=== PATIENT | male | born 1990 | race Two or more races ===

== ENCOUNTER 2023-06-29 17:04 | Emergency (ER) | payer BC ==
[~2023-06-29] VITALS: Ht 165.1 cm; Wt 81.7 kg
[2023-06-29 18:27] VITALS: BP 130/82; PULSE 117; RESP 16; TEMP 99.4; O2SAT 96
== END 2023-06-29 19:42 | disposition home or self-care (01) ==
LOC: ER 17:04
DX: F07.81 Postconcussional syndrome (principal); R55 Syncope and collapse; V98.8XXA Other specified transport accidents, initial encounter; Y93.89 Activity, other specified; Y92.89 Other specified places as the place of occurrence of the external cause; Y99.8 Other external cause status
CPT/HCPCS: 70450

== ENCOUNTER 2023-12-26 15:04 | Emergency (ER) | payer BC, OTHER ==
[~2023-12-26] VITALS: Ht 165.1 cm; Wt 76.7 kg
[2023-12-26 15:15] VITALS: BP 138/90; PULSE 115; RESP 16; O2SAT 96
[2023-12-26] MEDS ORDERED: CYCL-837 PO (16:02)
[2023-12-26] MEDS ORDERED: IBUP-1455 PO (16:02)
== END 2023-12-26 21:41 | disposition home or self-care (01) ==
LOC: ER 15:04
DX: S00.33XA Contusion of nose, initial encounter (principal); R51.9 Headache, unspecified; V89.2XXA Person injured in unspecified motor-vehicle accident, traffic, initial encounter; Y93.89 Activity, other specified; Y92.89 Other specified places as the place of occurrence of the external cause; Y99.8 Other external cause status